=== PATIENT | female | born 1995 | race Caucasian/White ===

== ENCOUNTER → 2019-07-30 | Outpatient (CLI) | payer OTHER ==
[~2019-07-30] MED LIST: ATARAX25 MG PO; BACTRIM DS 8001 TA1 PO; IRON50 MG PO; KEFLEX500 MG PO; LIDEX 0.05% OIN15 GM T; MOTRIN800 MG PO; MULTIPLE VITAMI1 CAP PO; NKHM; PYRIDIUM200 MG PO
[2019-07-30 13:51] LABS: BASO % 0.4 % (0.0-1.0); EOS # 0.1 10*3/uL (0.0-0.4); HEMATOCRIT 36.2 % (37.0-47.0); HEMOGLOBIN 11.6 g/dl (12.0-16.0); LYMPH # 3.5 10*3/uL (1.3-4.4); LYMPH % 33.8 % (27.0-41.0); MEAN CELL VOLUME 81.5 fl (81.0-99.0); MEAN CORPUSCULAR HGB 26.1 pg (27.0-31.0); MEAN PLATELET VOLUME 9.8 fl (9.6-12.3); MONO # 0.8 10*3/uL (0.1-1.0); MONO % 7.4 % (3.0-9.0); PLATELET COUNT AUTOMATED 285 10*3/uL (130-400); RED BLOOD COUNT 4.44 10*6/uL (4.10-5.10); WHITE BLOOD COUNT 10.5 10*3/uL (4.8-10.8)
[2019-07-31 09:06] LABS: HEPATITIS B SURFACE AG Negative (Negative)
[2019-07-31 11:10] LABS: IMMUNOGLOBULIN G, QNT 996 mg/dL (700-1600)
== END | disposition home or self-care (01) ==
LOC: LAB 12:46
PROVIDERS: Obstetrics & Gynecology
DX: Z34.00 Encounter for supervision of normal first pregnancy, unspecified trimester (principal)